=== PATIENT | female | born 1970 | race Caucasian/White ===

== ENCOUNTER 2021-02-22 17:01 | Emergency (ER) | payer SELFPAY ==
[2021-02-22 17:10] VITALS: BP 133/92; PULSE 72; RESP 16; TEMP 37.1; O2SAT 96
[2021-02-22 17:22] LABS: Glucose Point of Care 292 mg/dl (65-105)
--- NOTE | 2021-02-22 17:36 | ED.GENADULT ---
HPI - General Adult General Chief complaint: Unspecified Stated complaint: blood sugars problems Time Seen by Provider: 02/22/21 17:20 Source: patient Mode of arrival: ambulatory Limitations: no limitations History of Present Illness HPI narrative: Patient comes in and is a known diabetic, who has not taken any medications for diabetes, although she was diagnosed with diabetes in the past. She has had some mild to moderate sensation of not feeling well lately, with polyurira, polydipsia, polyphagia, and blurred vision at times. All these symptoms have been ongoing for about 3 weeks, hence she comes in. Measures at home include trying to loose weight, to help control the diabetes. She has lost 60 pounds over the past year. Onset (ago): week(s) Severity: moderate Relieving factors: rest Exacerbating factors: eating Associated symptoms: denies other symptoms Related Data Home Medications Medication Instructions Recorded Confirmed atenolol 50 mg PO DAILY 02/22/21 02/22/21 escitalopram oxalate [Lexapro] 50 mg PO DAILY 02/22/21 02/22/21 levothyroxine 325 mcg PO DAILY 02/22/21 02/22/21 oxybutynin chloride 5 mg PO DAILY 02/22/21 02/22/21 Allergies Allergy/AdvReac Type Severity Reaction Status Date / Time morphine Allergy Unknown Nausea and Verified 02/22/21 17:35 Vomiting prochlorperazine Allergy Unknown Confusion Verified 02/22/21 17:35 SIVER NITRATE Allergy Mild Unknown Uncoded 02/22/21 17:35 Review of Systems Constitutional: Constitutional: Reports fatigue Eyes: Eyes: Reports as per HPI ENT: Reports system reviewed and no additional complaints, except as documented Cardiovascular: Cardiovascular: Reports no additional cardiovascular complaints Respiratory: Respiratory: Reports no additional respiratory complaints Gastrointestinal: Gastrointestinal: Reports no additional gastrointestinal complaints Genitourinary: Genitourinary: Reports no additional female genitourinary complaints Musculoskeletal: Musculoskeletal: Reports no additional musculoskeletal complaints Integumentary/Breasts: Skin/Breast: Reports system reviewed and no additional complaints, except as docu Neurologic: Reports system reviewed and no additional complaints, except as documented Psychiatric: Psychiatric: Reports no additional psychiatric complaints Endocrine: Endocrine: Reports fatigue, Reports polyphagia, Reports polydipsia and Reports polyuria Hematologic/Lymphatic: Hematologic/Lymphatic: Reports no additional hematologic/lymphatic complaints Allergic/Immunologic: Allergic/Immunologic: Reports no additional allergic/immunologic complaints PMFSH Past Medical History Medical History (Updated 02/22/21 @ 17:56 by Yung Cole MD) delivery delivered Depression Hypothyroid Overactive bladder Surgical History Surgical History (Updated 02/22/21 @ 17:49 by Yung Cole MD) History of cholecystectomy History of tonsillectomy Family History Family History (Updated 02/22/21 @ 17:50 by Yung Cole MD) Father Heart disease Mother Diabetes mellitus Hypertension Hyperthyroidism Social History Social History (Updated 02/22/21 @ 17:52 by Yung Cole MD) Smoking packs per day: 2 Smoking cigarettes per day: 40.0 Smoking status: Current every day smoker Alcohol intake: never Substance use: former 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
[2021-02-22 18:02] LABS: Basophils Absolute Auto 0.06 K/mm3 (0.00-0.10); Basophils Percent Auto 0.6 % (0.0-1.0); Eosinophils Absolute Auto 0.11 K/mm3 (0.02-0.50); Eosinophils Percent Auto 1.1 % (1.0-6.0); Hematocrit 44.9 % (35.0-49.0); Hemoglobin 15.2 g/dL (12.0-15.0); Immature Granulocyte Absolute 0.05 K/mm3 (0.00-0.00); Immature Granulocyte Percent A 0.5 % (0.0-0.0); Lymphocytes Absolute Auto 3.92 K/mm3 (1.10-4.50); Lymphocytes Percent Auto 38.9 % (18.0-42.0); Mean Corpuscular HGB Conc 33.9 g/dL (32.0-36.0); Mean Corpuscular Hemoglobin 30.3 pg (27.0-31.0); Mean Corpuscular Volume 89.4 fL (78.0-102.0); Mean Platelet Volume 11.9 fl (9.2-11.8); Neutrophils Absolute Auto 5.5 K/mm3 (1.7-7.2); Neutrophils Percent Auto 53.9 % (50.0-70.0); Platelet Count Result 239 K/mm3 (150-420); Red Blood Count 5.02 M/mm3 (4.20-5.40); Red Cell Distribution Width 12.9 % (11.6-14.4); White Blood Count 10.1 K/mm3 (4.8-10.8)
[2021-02-22 18:15] LABS: Alanine Aminotransferase 38 U/L (14-59); Albumin Level 3.8 g/dL (3.4-5.0); Alkaline Phosphatase 147 U/L (46-116); Anion Gap 15 mmol/L (8-16); Aspartate Amino Transferase 14 U/L (15-37); Bilirubin,Total 0.6 mg/dL (0.00-1.00); Blood Urea Nitrogen 13 mg/dL (7-18); Calcium 9.1 mg/dL (8.5-10.1); Carbon Dioxide 22 mmol/L (21-32); Chloride 99 mmol/L (98-108); Estimated CRCL calculation 97 ml/min; Estimated Glomerular Filt Rate > 60; Glucose 374 mg/dL (70-99); Osmolality Calculated 297 mOsm/kg (285-295); Sodium 136 mmol/L (136-145); Total Protein 7.1 g/dL (6.4-8.2)
[2021-02-22 18:20] LABS: Lactic Acid Reflex 0.5 mmol/L (0.4-2.0)
[2021-02-22 18:28] LABS: Hemoglobin A1C > 13.7 % (<5.7)
[2021-02-22 18:33] LABS: Appearance Urine Clear (Clear); Bilirubin Urine Negative (Negative); Color Urine Light Yellow (Yellow); Glucose Urine UA 3+ (Negative); Ketones Urine 2+ (Negative); Leukocyte Esterase Ur Negative LEU/UL (Negative); Nitrate Urine Negative (Negative); Protein Urine Negative (Negative); Specific Grav Ur 1.015 (1.010-1.020); Urobilinogen Urine 0.2 mg/dL (0.2-1.0)
[2021-02-22 18:37] LABS: Acetone Small (Negative)
[2021-02-22 18:37] LABS: Add Urine Microscopic? YES; Blood Urine Trace-lysed (Negative)
[2021-02-22 18:38] LABS: Bacteria Urine 1+ /hpf; RBC Urine 0-2 /hpf (0-2); Squamous Epithelial Cell Urine Few /hpf (Few); WBC Urine 0-3 /hpf (0-3)
[2021-02-22] MEDS: INSULIN HUMAN REGULAR (*BKC) 100 UNITS/ML 10 UNITS SUB-Q (19:50)
[2021-02-22 20:32] LABS: Glucose Point of Care 298 mg/dl (65-105)
[2021-02-22 20:37] VITALS: BP 140/84; PULSE 65; RESP 14; O2SAT 95
== END 2021-02-22 20:39 | disposition home or self-care (01) ==
PROVIDERS: Emergency Provider Emergency Medicine
DX: E11.9 Type 2 diabetes mellitus without complications (principal)
CPT/HCPCS: 36415; 80053; 81001; 82010; 82948; 83036; 83605; 85025; 99283; J1815

== ENCOUNTER 2023-03-07 07:34 | Outpatient (CLI) | payer OTHER, SELFPAY ==
[2023-03-07 08:25] LABS: Alanine Aminotransferase 24 U/L (6-35); Albumin Level 4.5 g/dL (3.5-5.1); Alkaline Phosphatase 98 U/L (38-126); Anion Gap 12 mmol/L (8-16); Aspartate Amino Transferase 19 U/L (14-36); Bilirubin,Total 0.7 mg/dL (0.2-1.3); Blood Urea Nitrogen 16 mg/dL (7-17); Calcium 8.9 mg/dL (8.4-10.2); Carbon Dioxide 18 mmol/L (22-30); Chloride 106 mmol/L (98-107); Cholesterol 169 mg/dL (0-200); Estimated Glomerular Filt Rate > 60; Glucose 136 mg/dL (65-110); HDL Direct 34 mg/dL; Potassium 4.1 mmol/L (3.4-5.0); Sodium 136 mmol/L (137-145); Triglycerides 326 mg/dL (<150)
[2023-03-07 08:44] LABS: LDL Cholesterol Direct 71 mg/dL
[2023-03-07 10:39] LABS: Hemoglobin A1C 7.2 % (<5.7)
== END 2023-03-07 07:35 | disposition home or self-care (01) ==
PROVIDERS: PCP Nurse Practitioner Family; Visit Provider Nurse Practitioner Family
DX: E78.5 Hyperlipidemia, unspecified (principal); E11.9 Type 2 diabetes mellitus without complications
CPT/HCPCS: 36415; 80053; 80061; 83036

== ENCOUNTER 2023-05-14 11:49 | Outpatient (CLI) | payer OTHER, SELFPAY ==
[2023-05-14 13:13] LABS: Free T4 Free Thyroxine 2.07 ng/mL (0.78-2.19)
[2023-05-14 13:27] LABS: Thyroid Stimulating Hormone < 0.015 uIU/mL (0.465-4.680)
[2023-05-14 14:02] LABS: MALB Creatinine Ratio 11.1 mg/g (0-30); Microalbumin Urine Random 11.7 mg/L (0-16.7)
== END 2023-05-14 11:50 | disposition home or self-care (01) ==
PROVIDERS: PCP Nurse Practitioner Family; Visit Provider Internal Medicine
DX: E11.9 Type 2 diabetes mellitus without complications (principal); Z79.4 Long term (current) use of insulin
CPT/HCPCS: 36415; 82043; 84439; 84443

== ENCOUNTER 2023-10-16 10:58 | Outpatient (CLI) | payer OTHER, SELFPAY ==
[2023-10-16 11:25] LABS: Basophils Absolute Auto 0.1 K/mm3 (0.0-0.1); Basophils Percent Auto 0.8 % (0.2-1.2); Eosinophils Absolute Auto 0.1 K/mm3 (0-0.3); Hematocrit 47.3 % (37.0-47.0); Hemoglobin 15.6 g/dL (12.0-15.0); Immature Granulocyte Absolute 0.03 K/mm3 (0.00-0.031); Immature Granulocyte Percent A 0.3 % (0-0.5); Lymphocytes Absolute Auto 4.16 K/mm3 (0.9-3.2); Lymphocytes Percent Auto 44.7 % (18.3-44.2); Mean Corpuscular Hemoglobin 28.1 pg (26-34); Mean Corpuscular Volume 85.1 fl (80-100); Mean Platelet Volume 10.7 fl (7.4-10.4); Monocytes Absolute Auto 0.4 K/mm3 (0.1-0.6); Monocytes Percent Auto 4.7 % (2.6-8.5); Neutrophils Absolute Auto 4.5 K/mm3 (1.3-6.7); Neutrophils Percent Auto 48.5 % (45.5-73.1); Platelet Count Result 221 k/mm3 (150-375); Red Blood Count 5.56 M/mm3 (4.2-5.4); Red Cell Distribution Width 12.4 % (11.5-14.5); White Blood Count 9.3 K/mm3 (4.5-10.0)
[2023-10-16 11:44] LABS: Alanine Aminotransferase 26 U/L (6-35); Albumin Level 4.2 g/dL (3.5-5.1); Alkaline Phosphatase 89 U/L (38-126); Anion Gap 9 mmol/L (8-16); Aspartate Amino Transferase 18 U/L (14-36); Bilirubin,Total 0.5 mg/dL (0.2-1.3); Blood Urea Nitrogen 12 mg/dL (7-17); Calcium 9.3 mg/dL (8.4-10.2); Carbon Dioxide 19 mmol/L (22-30); Chloride 110 mmol/L (98-107); Cholesterol 138 mg/dL (0-200); Estimated Glomerular Filt Rate > 60; Glucose 146 mg/dL (65-110); HDL Direct 30 mg/dL; Potassium 3.8 mmol/L (3.4-5.0); Sodium 138 mmol/L (137-145); Triglycerides 315 mg/dL (<150)
[2023-10-16 11:55] LABS: LDL Cholesterol Direct 70 mg/dL
[2023-10-16 12:01] LABS: Free T4 Free Thyroxine 2.39 ng/mL (0.78-2.19)
[2023-10-16 12:08] LABS: MALB Creatinine Ratio < 9.7 mg/g (0-30); Microalbumin Urine Random < 6.0 mg/L (0-16.7)
[2023-10-16 12:13] LABS: Thyroid Stimulating Hormone < 0.015 uIU/mL (0.465-4.680)
[2023-10-19 04:27] LABS: Thyroid Peroxidase Antibodies 112 IU/mL (<9)
== END 2023-10-16 10:59 | disposition home or self-care (01) ==
LOC: ANHLAB 11:00
PROVIDERS: PCP Nurse Practitioner Family; Visit Provider Internal Medicine
DX: E78.5 Hyperlipidemia, unspecified (principal); E11.9 Type 2 diabetes mellitus without complications; E03.9 Hypothyroidism, unspecified; Z79.4 Long term (current) use of insulin; Z13.0 Encounter for screening for diseases of the blood and blood-forming organs and certain disorders involving the immune mechanism
CPT/HCPCS: 36415; 80053; 80061; 82043; 84439; 84443; 85025; 86376

== ENCOUNTER 2024-04-28 08:07 | Outpatient (CLI) | payer BC, SELFPAY ==
[2024-04-28 09:18] LABS: Thyroid Stimulating Hormone < 0.015 uIU/mL (0.465-4.680)
[2024-04-28 09:42] LABS: Free T4 Free Thyroxine 1.25 ng/mL (0.78-2.19)
== END 2024-04-28 08:08 | disposition home or self-care (01) ==
LOC: ANHLAB 08:10
PROVIDERS: PCP Nurse Practitioner Family; Visit Provider Internal Medicine
DX: E11.9 Type 2 diabetes mellitus without complications (principal); E03.9 Hypothyroidism, unspecified; Z79.4 Long term (current) use of insulin
CPT/HCPCS: 36415; 84439; 84443

== ENCOUNTER 2024-07-16 08:42 | Outpatient (CLI) | payer BC, SELFPAY ==
[2024-07-16 09:35] LABS: Basophils Absolute Auto 0.1 K/mm3 (0.0-0.1); Basophils Percent Auto 0.6 % (0.2-1.2); Eosinophils Absolute Auto 0.1 K/mm3 (0-0.3); Eosinophils Percent Auto 0.6 % (0-4.4); Hematocrit 48.6 % (37.0-47.0); Hemoglobin 16.2 g/dL (12.0-15.0); Immature Granulocyte Absolute 0.02 K/mm3 (0.00-0.031); Immature Granulocyte Percent A 0.2 % (0-0.5); Lymphocytes Absolute Auto 3.47 K/mm3 (0.9-3.2); Lymphocytes Percent Auto 40.4 % (18.3-44.2); Mean Corpuscular HGB Conc 33.3 g/dl (32-36); Mean Corpuscular Hemoglobin 29.1 pg (26-34); Mean Corpuscular Volume 87.4 fl (80-100); Mean Platelet Volume 11.1 fl (7.4-10.4); Monocytes Absolute Auto 0.5 K/mm3 (0.1-0.6); Monocytes Percent Auto 6.1 % (2.6-8.5); Neutrophils Absolute Auto 4.5 K/mm3 (1.3-6.7); Neutrophils Percent Auto 52.1 % (45.5-73.1); Platelet Count Result 271 k/mm3 (150-375); Red Blood Count 5.56 M/mm3 (4.2-5.4); Red Cell Distribution Width 11.9 % (11.5-14.5); White Blood Count 8.6 K/mm3 (4.5-10.0)
[2024-07-16 09:36] LABS: Alanine Aminotransferase 32 U/L (6-35); Albumin Level 5.1 g/dL (3.5-5.1); Alkaline Phosphatase 85 U/L (38-126); Anion Gap 8 mmol/L (4-12); Aspartate Amino Transferase 22 U/L (14-36); Bilirubin,Total 0.7 mg/dL (0.2-1.3); Blood Urea Nitrogen 12 mg/dL (7-17); Calcium 9.7 mg/dL (8.4-10.2); Carbon Dioxide 27 mmol/L (22-30); Chloride 104 mmol/L (98-107); Cholesterol 146 mg/dL (0-200); Estimated Glomerular Filt Rate > 60; Glucose 109 mg/dL (65-110); HDL Direct 42 mg/dL; Sodium 139 mmol/L (137-145); Triglycerides 240 mg/dL (<150)
[2024-07-16 09:47] LABS: LDL Cholesterol Direct 59 mg/dL
[2024-07-16 09:53] LABS: Add Urine Microscopic? NO; Appearance Urine Clear (Clear); Bilirubin Urine Negative (Negative); Blood Urine Negative (Negative); Color Urine Yellow (Yellow); Glucose Urine UA 3+ mg/dL (Negative); Ketones Urine Negative (Negative); Leukocyte Esterase Ur Negative LEU/UL (Negative); Nitrate Urine Negative (Negative); Protein Urine Negative (Negative); Specific Grav Ur 1.028 (1.001-1.035); Urobilinogen Urine 0.2 mg/dL (<2.0)
[2024-07-16 09:57] LABS: Free T4 Free Thyroxine 1.94 ng/dL (0.78-2.19)
[2024-07-16 10:07] LABS: Thyroid Stimulating Hormone < 0.015 uIU/mL (0.465-4.680); Total Triiodothyronine (T3) 1.48 NG/ML (0.97-1.69)
[2024-07-18 16:08] LABS: Erythropoietin (EPO) 6.2 mIU/mL (2.6-18.5)
== END 2024-07-16 08:43 | disposition home or self-care (01) ==
PROVIDERS: PCP Nurse Practitioner Family; Referring Provider Nurse Practitioner Family; Visit Provider Internal Medicine
DX: D58.2 Other hemoglobinopathies (principal); E03.9 Hypothyroidism, unspecified; E11.9 Type 2 diabetes mellitus without complications; E66.9 Obesity, unspecified; E78.5 Hyperlipidemia, unspecified; F17.210 Nicotine dependence, cigarettes, uncomplicated; F32.9 Major depressive disorder, single episode, unspecified; I10 Essential (primary) hypertension; J44.9 Chronic obstructive pulmonary disease, unspecified; N32.81 Overactive bladder; Z79.4 Long term (current) use of insulin
CPT/HCPCS: 36415; 80053; 80061; 81003; 82668; 83519; 84439; 84443; 84445; 84480; 85025

== ENCOUNTER 2024-07-16 09:29 | Outpatient (CLI) | payer BC, SELFPAY ==
--- NOTE | ~2024-07-16 | US_ITS ---
EXAMINATION: US thyroid DATE: 07/16/2024 09:47 INDICATION: Thyroid nodule. TECHNIQUE: Multiple ultrasound images of the thyroid were obtained. COMPARISON: None. FINDINGS: The right thyroid lobe measures 3.4 x 1.0 x 1.2 cm. The left thyroid lobe measures 2.8 x 1.0 x 0.9 c m. The thyroid demonstrates heterogeneous echogenicity. No discrete nodule. Vascularity is normal. IMPRESSION: 1. Heterogeneous thyroid, likely chronic lymphocytic (Romi) thyroiditis. Reviewed, dictated and finalized at location A. SIFIER TENDER
== END 2024-07-16 09:30 | disposition home or self-care (01) ==
LOC: MICIMG 09:32
PROVIDERS: PCP Nurse Practitioner Family; Visit Provider Internal Medicine
DX: E03.9 Hypothyroidism, unspecified (principal); R79.89 Other specified abnormal findings of blood chemistry
CPT/HCPCS: 76536

== ENCOUNTER 2024-11-18 08:14 | Outpatient (CLI) | payer BC, SELFPAY ==
--- OUTSIDE RECORDS SUMMARY | 2024-11-18 08:21 | XMS_ITS | Referral Summary ---
Author Organization [facility] Address [address] [place] [address] Care Team Providers Care Business Performance Manager Name Role Phone No, Physician Primary Care Provider [phone] Allergies Active Allergy Reactions Criticality Noted Date Comments Morphine Prochlorperazine Medications levothyroxine (SYNTHROID, LEVOTHROID) 100 mcg tablet Take 1 tablet (100 mcg total) by mouth daily. 60 tablet 8 Active albuterol (PROVENTIL,VENT EUNICE) 0.63 mg/3 mL nebulizer solution Take 3 mL (0.63 mg total) by nebulization every 6 (six) hours as needed for wheezing. 75 mL 8 Active atorvastatin (LIPITOR) 10 mg tablet Take 1 tablet (10 mg total) by mouth daily Active dapagliflozin propanediol (FARXIGA) 10 mg tablet 1 tablet (10 mg total) daily Active semaglutide (OZEMPIC SUBQ) Inject 2 mg under the skin once a week Active chlorhexidine (PERIDEX) 0.12 % solutionIndicat ions:Dog bite, subsequent encounter Swish and spit 15ml 4 times per day 120 mL 4 Active Active Problems Problem Noted Date Diagnosed Date Avulsion of nose 03/24/2024 Lip laceration 03/24/2024 Dog bite 03/24/2024 Contusion of knee 05/29/2014 Knee pain 05/29/2014 Osteoarthritis of knee 05/26/2014 Breast pain 02/08/2013 Social History Tobacco Use Types Packs/Day Years Used Date Smoking Tobacco: Former Cigarettes Smokeless Tobacco: Never Tobacco Cessation:Counseling Given: Not Answered Comments:1-2 packs daily. Alcohol Use Standard Drinks/Week Comments Yes 0 (1 standard drink = 0.6 oz pur e alcohol) Occasional drinker. AUDIT-C Answer Date Recorded Q1: How often do you have a drink containing alc ohol? Never 03/28/2024 Average Number of Drinks Not on file 024 Frequency of Binge Drinking Not on file 03/10 Personal Safety Answer Date Recorded Have you ever been in or are you currently in a harmful physical or emotional relationship or is someone making you feel afraid or unsafe? 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 Gender Identity Not on file Sexual Orientation Not on file Last Filed Vital Signs Vital Sign Reading Time Taken Comments Blood Pressure 145/98 03/24/2024 2:31 PM CDT Pulse 88 03/24/2024 2:31 PM CDT Temperature 37.4 C (99.4 F) 03/24/2024 8:43 AM CDT Respiratory Rate 18 03/24/2024 2:31 PM CDT Oxygen Saturation 94% 03/24/2024 2:31 PM CDT Inhaled Oxygen Concentration - - Weight 95.7 kg (211 lb) 03/28/2024 2:47 PM CDT Height 160 cm (5' 3 ) 03/28/2024 2:47 PM CDT Body Mass Index 37.38 03/28/2024 2:47 PM CDT Plan of Treatment Not on file Procedures Procedure Name Priority Date/Time Associated Diagnosis Comments HEPATITIS PANEL, ACUTE STAT 01/13/2018 8:55 AM CDT from Last 3 Months or Most Recently Relevant to Health Maintenance Results * Hepatitis panel, acute (01/13/2018 8:55 AM CDT) Hep A IgM Negative Negative [facility] ([place]) Comment:Testing performed by : [facility], [address] [place] [address], [place]., [address] Hep B core IgM Negative Negative [facility] ([place]) Comment:Testing performed by : [address] [address] Hep C Ab Negative Negative [facility] ([place]) Comment:Testing performed by : [facility], [address] [place] [address]., [address] HepBsAg Negative Negative [facility] ([place]) Comment:Testing performed by : [address], [place]., [address] Blood specimen (specimen) 01/13/2018 8:55 AM CDT 01/13/2018 2:04 PM CDT Narrative [facility] ([place]) - 01/13/2018 3:21 PM CDT us Conrado Mccall MD LAB MICROBIOLOGY - GENE RAL ORDERABLES Final Result [facility] ([place]) 1 [facility] Department [place] [address] from Last 3 Months or Most Recently Relevant to Health Maintenance [place] Care Teams Business Performance Manager Relationship Specialty Start Date End Date No, Physician PCP - General 01/13/18
--- OUTSIDE RECORDS SUMMARY | 2024-11-18 08:21 | XMS_ITS | Clinical Summary ---
Author Organization [facility] [place] [facility] Address [address] [place] [id number] Care Team Providers Care Health Informatics Specialist Name Role Phone Carlota Connolly JHOANA Primary Care Provider [phone] Social History Tobacco Use Types Packs/Day Years Used Date Smoking Tobacco: Never Assessed Comments Unknown Sex and Gender Information Value Date Recorded Sex Assigned at Not on file Legal Sex Female 5:08 PM CDT Gender Identity Not on file Sexual Orientation Not on file Plan of Treatment Health Maintenance Due Date Last Done Comments Cervical Cancer Screening Pa p Smear (Age 30 to 64) Every 3 Years 1971 Colorectal Cancer Screening Colonoscopy (10 Years) 1971 Annual Physical 1974 Hepatitis C 1989 DTaP, Tdap and Td Vaccines ( 1 - Tdap) 1990 Hepatitis B Vaccines (1 of 3 - 19+ 3-dose series) 1990 Cervical Cancer Screening Pa p with HPV Testing (Age 30 to 64) Every 5 Years 2001 Cervical Cancer Screening with HPV 2001 Mammogram Screening 2011 Zoster Vaccines (1 of 2) 2021 COVID-19 Vaccine ( - 2023-2 5 season) 2024 Meningococcal B Vaccine Aged Out No l onger eligible based on patient's age to complete this topic Meningococcal Vaccine Aged Out No destiny patience eligible based on patient's age to complete this topic Pneumococcal Vaccine: Pediat rics (0 to 5 Years) and At-Risk Patients (6 to 64 Years) Aged Out No longer eligible b ased on patient's age to complete this topic RSV Immunizations Under 20 Months Aged Out No longer eligible based on patient's age to complete this topic Insurance [employer] Care Teams Health Informatics Specialist Relationship Specialty Start Date End Date Carlota Connolly APNP [address] [place] [id number] PCP - General NURSE PRACTITIONER 10/25/21
--- OUTSIDE RECORDS SUMMARY | 2024-11-18 08:21 | XMS_ITS | Encounter Summary ---
Author Organization [facility] Address [address] [place] [address] Care Team Providers Care Wrist Closer Name Role Phone Carlota Connolly Primary Care Provider [phone] Encounter Details Date Type Department Care Team (Late st Contact Info) Description 01/15/[address] [facility] [address] [place] [address] , Generic Conversion, Social History Tobacco Use Types Packs/Day Years Used Date Smoking Tobacco: Never Assessed Comments Unknown Sex and Gender Information Value Date Recorded Sex Assigned at Not on file Legal Sex Female 5:08 PM CDT Gender Identity Not on file Sexual Orientation Not on file documented as of this encounter Plan of Treatment Not on file documented as of this encounter Visit Diagnoses Not on filedocumented in this encounter Care Teams Wrist Closer Relationship Specialty Start Date End Date Carlota Connolly APNP [facility] [place] [address] PCP - General NURSE PRACTITIONER 10/25/21 documented as of this encounter
--- OUTSIDE RECORDS SUMMARY | 2024-11-18 08:21 | XMS_ITS | Clinical Summary ---
Author Organization [facility] Address [address] [place] [address] Care Team Providers Care Sock Boarder Name Role Phone No, Physician Primary Care Provider [phone] Allergies Active Allergy Reactions Criticality Noted Date [...] Osteoarthritis of knee 05/26/2014 Breast pain 02/08/2013 Surgical History Surgery Date Site/Laterality Comments CHOLECYSTECTOMY KNEE SURGERY SECTION BREAST LUMPECTOMY Medical History Medical History Date Comments Thyroid disease Breast cancer (HCC) 20+ years ag o. Hypertension Family History Medical History Relation Name Comments Hypertension Brother 1 Family history of hypertension - (Added by TW Conv) Mental illness Brother 2 Mental proble m - (Added by TW Conv) Alcohol abuse Father Family history of alcoholism - (Added by TW Conv) Heart disease Father Family history of cardiac disorder - (Added by TW Conv) Hypertension Father Family history of hypertension - (Added by TW Conv) Mental illness Father Mental proble m - (Added by TW Conv) Arthritis Mother Family history of arthritis - (Added by TW Conv) Blood Clot Mother Family history of blood clots - (Added by TW Conv) Diabetes Mother Hypertension Mother Lung disease Mother Lung trouble - (Added by TW Conv) Mental illness Mother Mental proble m - (Added by TW Conv) Thyroid disease Mother Hypertension Sister 1 Family history of hypertension - (Added by TW Conv) Mental illness Sister 2 Mental proble m - (Added by TW Conv) Cancer Sister 3 Family history of malignant neoplasm - (Added by TW Conv) Relation Name Status Comments Brother 1 Brother 2 Father Mother Sister 1 Sister 2 Sister 3 Social History Tobacco Use Types Packs/Day Years [...] on file 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 Gender Identity Not on file Sexual Orientation Not on file Obstetrics History Last Filed Vital Signs Vital Sign Reading [...] 03/28/2024 2:47 PM CDT Plan of Treatment Health Maintenance Due Date Last Done Comments Breast Cancer Screening-Mammogram 1971 Cervical Cancer Screening 1971 Colon Cancer Screening-Colonoscopy 1971 Depression Screening 1971 DTaP/Tdap/Td Vaccine (1 - Tdap) 1982 Hepatitis B Screening 1989 Regular Well Visit/Exam 18-64 1989 Zoster Vaccine (1 of 2) 2021 Influenza Vaccine (#1) 2024 9, 07/11/2014 Hepatitis C Screening Completed 01/13/2018 Pneumococcal vaccine <65 Aged Out No longer eligible based on patient's age to complete this topic Procedures Procedure Name Priority Date/Time Associated Diagnosis Comments HEPATITIS PANEL, ACUTE STAT 01/13/2018 8:55 AM CDT from Last 3 Months or Most Recently Relevant to Health Maintenance Results * Hepatitis panel, acute (01/13/2018 8:55 AM CDT) Hep A IgM Negative Negative [facility] ([place]) Comment:Testing performed by : [address] [address] Hep B core IgM Negative Negative [facility] ([place]) Comment:Testing performed by : [address] [address] Hep C Ab Negative Negative [facility] ([place]) Comment:Testing performed by : [address] [address] HepBsAg Negative Negative [facility] ([place]) Comment:Testing performed by : [address] [address] Blood specimen (specimen) 01/13/2018 8:55 AM CDT 01/13/2018 2:04 PM CDT Narrative [facility] ([place]) - 01/13/2018 3:21 PM CDT Conrado Mccall MD LAB MICROBIOLOGY - GENE RAL ORDERABLES Final Result [facility] [place]) 1 [facility] [place] [address] from Last 3 Months or Most Recently Relevant to Health Maintenance [place] Care Teams Sock Boarder Relationship Specialty Start Date End Date No, Physician PCP - General 01/13/18
--- OUTSIDE RECORDS SUMMARY | 2024-11-18 08:21 | XMS_ITS | Clinical Summary ---
Author Organization [facility] Address [address] [facility] [address] [place] [address] Phone Care Team Providers Care Structural Worker Name Role Phone Unavailable Primary Care Provider Unavailabl e Allergies Active Allergy Reactions Criticality Noted Date Comments Prochlorperazine Anaphylaxis 01/04/2019 Morphine Hallucinations 01/04/2019 Medications escitalopram (LEXAPRO) 10 MG Tablet Take 1 Tab by mouth daily. 90 Tab 9 Active levothyroxine (SYNTHROID) 150 MCG Tablet Take 1 Tab by mouth daily. 90 Tab 3 9 Active metFORMIN (GLUCOPHAGE) 500 MG Tablet Take 1 Tab by mouth daily (with breakfast). 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 Social History Tobacco Use Types Packs/Day Years Used Date Smoking Tobacco: Every Day Smokeless Tobacco: Never Tobacco Cessation:Ready to Q uit: No; Counseling Given: Yes Alcohol Use Standard Drinks/Week Comments Not Currently 0 (1 standard drink = 0.6 oz pur e alcohol) PHQ-2 Answer Date Recorded PHQ-2 Score 0 04/21/2019 Sexually Active Control Partners Comments Not Currently Comments No Sex and Gender Information Value Date Recorded Sex Assigned at Not on file Legal Sex Female 9:34 PM CDT Gender Identity Not on file Sexual Orientation Not on file Last Filed Vital Signs Vital Sign Reading Time Taken Comments Blood Pressure 120/82 01/12/2019 12:54 PM CDT Pulse 78 01/12/2019 12:54 PM CDT Temperature 36 C (96.8 F) 01/12/2019 12:54 PM CDT Respiratory Rate 20 01/12/2019 12:5 4 PM CDT Oxygen Saturation 99% 01/12/2019 12: 54 PM CDT Inhaled Oxygen Concentration - - Weight 124.3 kg (274 lb 1.6 oz) 019 12:54 PM CDT Height 161.3 cm (5' 3.5 ) 01/12/2019 12 :54 PM CDT Body Mass Index 47.79 01/12/2019 12:54 PM CDT Plan of Treatment Health Maintenance Due Date Last Done Comments Diabetes: Eye Exam 1971 Diabetes: Foot Exam 1971 Hepatitis C Virus (HCV) Screening 1971 TdaP Immunization 1971 Hepatitis B Immunization (1 of 3 - 19+ 3-dose series) 1990 Pneumococcal Immunization (5 0+ years) (1 of 2 - PCV) 1990 Colonoscopy 2016 Colorectal Cancer Screening 2016 Diabetes: Hemoglobin A1c 07/07/2019 01/04/2019 Diabetes: Nephropathy Screening 01/05/2020 9 Cologuard 2021 Immunochemical Fecal Occult Blood 2021 Zoster Immunization (1 of 2) 2021 Influenza Immunization (#1) 2024 SARS-COV-2 Immunization ( - 2023- season) 2024 Respiratory Syncytial Virus (RSV) Immunization (Adult) (1 - 1-dose 75+ series) 2046 Meningococcal Immunization (ACWY) Aged Out No longer eligible based on patient's age to complete this topic Rotavirus Immunization Aged Out No lo nger eligible based on patient's age to complete this topic Procedures Procedure Name Priority Date/Time Associated Diagnosis Comments CMP (COMPREHENSIVE METABOLIC PANEL) Routine 01/04/2019 11:17 AM CDT Other fatigue Weakness Weight gain HEMOGLOBIN A1C W/ ESTIMATED GLUCOSE Routine 01/04/2019 11:17 AM CDT Other fatigue Weakness Weight gain from Last 3 Months or Most Recently Relevant to Health Maintenance Results * (ABNORMAL) HEMOGLOBIN A1C W/ ESTIMATED GLUCOSE (01/04/2019 11:17 AM CDT) HGB-A1C 6.6(H) 4.0 - 6.0 % 01/04/2019 4:[address] [facility] Est Average Glucose 142.7 mg/dL 01/04/2019 4:31 PM CDT [facility] Blood specimen (specimen) Venipuncture / Unknown 01/04/2019 11:17 AM CDT 01/04/2019 11:17 AM CDT Narrative [facility] - 01/04/2019 4:31 PM CDT HEMOGLOBIN A1C: DIABETIC PATIENTS: WELL-CONTROLLED: 6.2 - 7.0 INTERMEDIATE WELL-CONTROLLED: 7.0 - 9.0 POORLY-CONTROLLED: >9.0 Fátima Jean PAC CHEMISTRY ORDERAB LES Final Result [facility] [address] [place] [address] * (ABNORMAL) CMP (COMPREHENSIVE METABOLIC PANEL) (01/04/2019 11:17 AM CDT) SODIUM 139 136 - 144 mmol/L 01/04/2019 4:31 PM CDT [facility] POTASSIUM 4.2 3.5 - 5.1 mmol/L 01/04/2019 4:[address] [facility] CHLORIDE 99(L) 100 - 110 mmol/L 01/04/2019 4:31 PM CDT [facility] CO2, VENOUS 28 22 - 32 mmol/L 01/04/2019 4:31 PM [facility] ANION GAP 16.2 8.0 - 20.0 mmol/L 01/04/2019 4:31 PM T [facility] GLUCOSE 99 70 - 99 mg/dL 01/04/2019 4:31 PM [facility] BUN 13 6 - 20 mg/dL 01/04/2019 4:31 PM [facility] CREATININE, BLOOD 1.00 0.60 - 1.10 mg/dL 01/04/2019 4:31 PM [facility] BUN/CREATININE RATIO 13 12 - 20 ratio 01/04/2019 4:31 PM [facility] TOTAL PROTEIN 8.2 6.0 - 8.3 g/dL 01/04/2019 4:31 PM [facility] ALBUMIN 4.8 3.5 - 5.2 g/dL 01/04/2019 4:31 PM [facility] Comment: The colormetric methods used for the determination of Albumin may lead to falsely elevated test results in patients suffering from renal failure or insufficiency due to interference with other proteins. A/G RATIO 1.4 1.0 - 2.0 01/04/2019 4:31 PM [facility] CALCIUM 9.9 8.9 - 10.3 mg/dL 01/04/2019 4:31 PM [facility] T BILI 0.4 <=1.2 mg/dL 01/04/2019 4:31 PM [facility] SGOT (AST) 29 <=32 U/L 01/04/2019 4:31 PM [facility] SGPT (ALT) 20 <=33 U/L 01/04/2019 4:31 PM T [facility] ALKALINE PHOSPHATASE 71 35 - 105 U/L 01/04/2019 4:31 PM [facility] GFR, EST. NONAFRICAN 59(L) >=60 01/04/2019 4:31 PM CDT [facility] GFR, EST. >60 >=60 019 4:[address] [facility] Comment: Creatinine Clearance is the preferred criteria for selecting drug dose adjustments in renally impaired patients. The GFR is provided as additional pertinent clinical information. GFR is reported in mL/min/1.73 sq m. Blood specimen (specimen) Venipuncture / Unknown 01/04/2019 11:17 AM CDT 01/04/2019 11:17 AM CDT us Fátima Jean PAC CHEMISTRY ORDERAB LES Final Result [facility] [address] [place] [address] from Last 3 Months or Most Recently Relevant to Health Maintenance
--- OUTSIDE RECORDS SUMMARY | 2024-11-18 08:21 | XMS_ITS | Clinical Summary ---
Author Organization [facility] Address [address] [place] [address] Care Team Providers Care Teletray Operator Name Role Phone Werner Bartholomew MD Primary Care Provider [phone] Source Comments [facility],non-owned Affiliates and Associated Physician Practices is amultiple site organization consisting of ambulatory clinics and hospital sitesin [place], [place], [place] and [place]. This disclosure is being madepursuant to the Care Everywhere program and may not contain all information available regarding this patient. Last updated 18.[facility] Social History Tobacco Use Types Packs/Day Years Used Date Smoking Tobacco: Never Assessed Sex and Gender Information Value Date Recorded Sex Assigned at Not on file Gender Identity Not on file Sexual Orientation Not on file Plan of Treatment Health Maintenance Due Date Last Done Comments COLOGUARD (AGES 45-75) - COL ON CA SCREENING 1971 COLON MONITORING 1971 COLONOSCOPY - COLON CA SCREENING 1971 CT COLONOGRAPHY - COLON CA SCREENING 1971 Colorectal Cancer Screening 1971 FIT - COLON CA SCREENING 1971 FLEX SIG - COLON CA SCREENING 1971 LIPID TESTING 1971 MAMMOGRAM 1971 PAP SMEAR 1971 HIV SCREENING 1986 HEPATITIS C SCREENING 09/14/1989 DTAP/TDAP/TD VACCINES (1 - Tdap) 1990 HEPATITIS B VACCINE (1 of 3 - 19+ 3-dose series) 1990 PNEUMOCOCCAL VACCINE 50+ (1 of 1 - PCV) 2021 ZOSTER VACCINE (1 of 2) 2021 COVID-19 VACCINE ( - 2023-2 5 season) 2024 DEPRESSION SCREENING 08/10/2024 INFLUENZA VACCINE (Season Ended) 2025 HIB VACCINE Aged Out No longer eligi ble based on patient's age to complete this topic HPV VACCINE Aged Out No longer eligi ble based on patient's age to complete this topic MENINGOCOCCAL (Group B) VACC INE SHARED DECISION-MAKING Aged Out No longer eligibl e based on patient's age to complete this topic MENINGOCOCCAL GROUPS A/C/Y/W VACCINE Aged Out No longer eligible b ased on patient's age to complete this topic PNEUMOCOCCAL VACCINE Aged Out No long er eligible based on patient's age to complete this topic Care Teams Teletray Operator Relationship Specialty Start Date End Date Werner Bartholomew MD [address] [place] [address] PCP - General 01/07/12
[2024-11-18 08:45] LABS: Basophils Absolute Auto 0.1 K/mm3 (0.0-0.1); Basophils Percent Auto 0.7 % (0.2-1.2); Eosinophils Absolute Auto 0.1 K/mm3 (0-0.3); Eosinophils Percent Auto 0.7 % (0-4.4); Hematocrit 45.7 % (37.0-47.0); Hemoglobin 15.1 g/dL (12.0-15.0); Immature Granulocyte Absolute 0.02 K/mm3 (0.00-0.031); Immature Granulocyte Percent A 0.2 % (0-0.5); Lymphocytes Absolute Auto 3.69 K/mm3 (0.9-3.2); Lymphocytes Percent Auto 43.5 % (18.3-44.2); Mean Corpuscular Hemoglobin 28.9 pg (26-34); Mean Corpuscular Volume 87.5 fl (80-100); Mean Platelet Volume 10.3 fl (7.4-10.4); Monocytes Absolute Auto 0.6 K/mm3 (0.1-0.6); Monocytes Percent Auto 6.5 % (2.6-8.5); Neutrophils Absolute Auto 4.1 K/mm3 (1.3-6.7); Neutrophils Percent Auto 48.4 % (45.5-73.1); Platelet Count Result 269 k/mm3 (150-375); Red Blood Count 5.22 M/mm3 (4.2-5.4); White Blood Count 8.5 K/mm3 (4.5-10.0)
[2024-11-18 09:46] LABS: Alanine Aminotransferase 24 U/L (6-35); Albumin Level 4.5 g/dL (3.5-5.1); Alkaline Phosphatase 79 U/L (38-126); Anion Gap 15 mmol/L (4-12); Aspartate Amino Transferase 20 U/L (14-36); Bilirubin,Total 0.5 mg/dL (0.2-1.3); Blood Urea Nitrogen 14 mg/dL (7-17); Calcium 9.2 mg/dL (8.4-10.2); Carbon Dioxide 19 mmol/L (22-30); Chloride 105 mmol/L (98-107); Cholesterol 183 mg/dL (0-200); Estimated Glomerular Filt Rate > 60; Glucose 109 mg/dL (65-110); HDL Direct 38 mg/dL; Potassium 4.3 mmol/L (3.4-5.0); Sodium 139 mmol/L (137-145); Triglycerides 327 mg/dL (<150)
[2024-11-18 09:50] LABS: Microalbumin Urine Random 12.6 mg/L (0-16.7)
[2024-11-18 09:53] LABS: Creatinine Urine 79.2 mg/dL; MALB Creatinine Ratio 15.9 mg/g (0-30)
[2024-11-18 09:57] LABS: LDL Cholesterol Direct 84 mg/dL
== END 2024-11-18 08:15 | disposition home or self-care (01) ==
PROVIDERS: PCP Nurse Practitioner Family; Visit Provider Nurse Practitioner Family
DX: Z00.00 Encounter for general adult medical examination without abnormal findings (principal); F33.41 Major depressive disorder, recurrent, in partial remission; E66.9 Obesity, unspecified; Z68.34 Body mass index [BMI] 34.0-34.9, adult; E78.5 Hyperlipidemia, unspecified; J44.9 Chronic obstructive pulmonary disease, unspecified; I10 Essential (primary) hypertension; N32.81 Overactive bladder; E03.9 Hypothyroidism, unspecified; E11.9 Type 2 diabetes mellitus without complications; D58.2 Other hemoglobinopathies; Z72.0 Tobacco use; Z79.4 Long term (current) use of insulin
CPT/HCPCS: 36415; 80053; 80061; 82043; 85025

== ENCOUNTER 2024-12-16 15:39 | Outpatient (CLI) | payer BC, SELFPAY ==
--- NOTE | ~2024-12-16 | CT_ITS ---
CT Scan of the Chest without Contrast: Clinical Indication: Lung cancer screening, nicotine dependence Technique: Contiguous sections were acquired throughout the chest without intravenous contrast. Dose reduction technique was used on this scan by utilizing automated exposure control and iterative recon struction technique. The dose-length product (DLP) was 147.27 mGy-cm. Findings: There is no evidence of any significant mediastinal, hilar or axillary lymphadenopathy. Coronary mahendra ry calcifications are present. There is lipomatous hypertrophy of the interatrial septum. There is no evidence of pleural or pericardial effusion. Vague focal groundglass opacity anterior right upper lobe (axial image 31). 5 mm pleural-based nodule present at the lateral right lower lobe (axial image 79). Calcified left upper lobe granuloma presen t. Images through the upper abdomen reveal no abnormalities. Impression: Lung RADS 2: Benign appearance. 12 month follow-up screening CT advised. Reviewed, dictated and finalized at [facility]. Impression: Lung RADS 2: Benign appearance. 12 month follow-up screening CT advised.
== END 2024-12-16 15:40 | disposition home or self-care (01) ==
LOC: MICIMG 15:40
PROVIDERS: PCP Nurse Practitioner Family; Visit Provider Nurse Practitioner Family
DX: Z12.2 Encounter for screening for malignant neoplasm of respiratory organs (principal); Z87.891 Personal history of nicotine dependence
CPT/HCPCS: 71271

== ENCOUNTER 2025-03-10 06:45 | Outpatient (CLI) | payer BC, SELFPAY ==
--- OUTSIDE RECORDS SUMMARY | 2025-03-10 06:49 | XMS_ITS | Clinical Summary ---
Author Organization [facility] Address [address] [place] [address] Care Team Providers Care Materials Scheduler Name Role Phone No, Physician Primary Care Provider [phone] Allergies Active Allergy Reactions Criticality Noted Date [...] on file Legal Sex Female 1:45 AM DIRECTOR PHYSICAL Gender Identity Not on file Sexual Orientation [...] 2:47 PM CDT Height 160 cm (5' 3) 03/28/2024 2:47 PM CDT Body Mass Index 37.38 03/28/2024 2:47 PM CDT Plan of Treatment Health Maintenance Due Date Last Done Comments Breast Cancer Screening-Mammogram 1971 Cervical Cancer Screening 1971 Colon Cancer Screening-Colonoscopy 1971 Depression Screening 1971 DTaP/Tdap/Td Vaccine (1 - Tdap) 1982 Hepatitis B Screening 1989 Regular Well Visit/Exam 18-64 1989 Zoster Vaccine (1 of 2) 2021 Influenza Vaccine (#1) 2025 9, 07/11/2014 Hepatitis C Screening Completed 01/13/2018 [...] [facility] ([place]) Comment:Testing performed by : [address] [address] Hep B core IgM Negative Negative [facility] ([place]) Comment:Testing performed by : [address] [address] Hep C Ab Negative Negative [facility] ([place]) Comment:Testing performed by : [address] [address] HepBsAg Negative Negative [facility] ([place]) Comment:Testing performed by : [address] [address] Blood specimen (specimen) 01/13/2018 8:55 AM CDT 01/13/2018 2:04 PM CDT Narrative [facility] ([place]) - 01/13/2018 3:21 PM CDT Conrado Mccall MD LAB MICROBIOLOGY - GENE RAL ORDERABLES Final Result [facility] [place]) 1 [facility] Department [place] [address] from Last 3 Months or Most Recently Relevant to Health Maintenance [place] Care Teams Materials Scheduler Relationship Specialty Start Date End Date No, Physician PCP - General 01/13/18
--- OUTSIDE RECORDS SUMMARY | 2025-03-10 06:49 | XMS_ITS | Clinical Summary ---
Author Organization [facility] Address [address] [facility] [address] [place] [address] Phone Care Team Providers Care Paint Striping Machine Operator Name Role Phone Unavailable Primary Care Provider [...] 12:54 PM CDT Height 161.3 cm (5' 3.5) 01/12/2019 12 :54 PM CDT Body Mass Index 47.79 01/12/2019 12:54 PM CDT Plan of Treatment Health Maintenance Due Date Last Done Comments Diabetes: Eye Exam 1971 Diabetes: Foot Exam 1971 Hepatitis C Virus (HCV) Screening 1971 TdaP Immunization 1971 Hepatitis B Immunization (1 of 3 - 19+ 3-dose series) 1990 Pneumococcal Immunization (5 0+ years) (1 of 2 - PCV) 1990 Pap Smear 1992 Cervical Cancer Screening (CCS) 2001 HPV/Cotest 2001 Cologuard 2016 Colonoscopy 2016 Colorectal Cancer Screening 2016 Immunochemical Fecal Occult Blood 2016 Diabetes: Hemoglobin A1c 07/07/2019 01/04/2019 Diabetes: Nephropathy Screening 01/05/2020 9 Zoster Immunization (1 of 2) 2021 SARS-COV-2 Immunization ( - season) 2024 Influenza Immunization (#1) 2025 Respiratory Syncytial Virus (RSV) Immunization (Adult) (1 - 1-dose 75+ series) 2046 Human Papillomavirus (HPV) Immunization Aged Out No longer eligible b ased on patient's age to complete this topic Meningococcal Immunization (ACWY) Aged Out No longer [...] - 6.0 % 01/04/2019 4:31 PM CDT [facility] Est Average Glucose 142.7 mg/dL 01/04/2019 4:31 PM CDT [facility] Blood specimen (specimen) Venipuncture / Unknown 01/04/2019 11:17 AM CDT 01/04/2019 11:17 AM CDT Narrative [facility] - 01/04/2019 4:31 PM CDT HEMOGLOBIN A1C: DIABETIC PATIENTS: WELL-CONTROLLED: 6.2 - 7.0 INTERMEDIATE WELL-CONTROLLED: 7.0 - 9.0 POORLY-CONTROLLED: >9.0 Fátima Jean PAC CHEMISTRY ORDERAB LES Final Result [facility] [address] [place] [address] * (ABNORMAL) CMP (COMPREHENSIVE METABOLIC PANEL) (01/04/2019 11:17 AM CDT) SODIUM 139 136 - 144 mmol/L 01/04/2019 4:31 PM CDT [facility] POTASSIUM 4.2 3.5 - 5.1 mmol/L 01/04/2019 4:31 PM [facility] CHLORIDE 99(L) 100 - 110 mmol/L 01/04/2019 4:31 PM [facility] CO2, VENOUS 28 22 - 32 mmol/L 01/04/2019 4:31 PM [facility] ANION GAP 16.2 8.0 - 20.0 mmol/L 01/04/2019 4:31 PM [facility] GLUCOSE 99 70 - 99 mg/dL 01/04/2019 4:31 PM [facility] BUN 13 6 - 20 mg/dL 01/04/2019 4:31 PM [facility] CREATININE, BLOOD 1.00 0.60 - 1.10 mg/dL 01/04/2019 4:31 PM [facility] BUN/CREATININE RATIO 13 12 - 20 ratio 01/04/2019 4:31 PM [facility] TOTAL PROTEIN 8.2 6.0 - 8.3 g/dL 01/04/2019 4:31 PM [facility] ALBUMIN 4.8 3.5 - 5.2 g/dL 01/04/2019 4:31 PM [facility] Comment: The colormetric methods used for the determination of Albumin may lead to falsely elevated test results in patients suffering from renal failure or insufficiency due to interference with other proteins. A/G RATIO 1.4 1.0 - 2.0 01/04/2019 4:31 PM [facility] CALCIUM 9.9 8.9 - 10.3 mg/dL 01/04/2019 4:31 PM [facility] T BILI 0.4 <=1.2 mg/dL 01/04/2019 4:31 PM [facility] SGOT (AST) 29 <=32 U/L 01/04/2019 4:31 PM [facility] SGPT (ALT) 20 <=33 U/L 01/04/2019 4:31 PM [facility] ALKALINE PHOSPHATASE 71 35 - 105 U/L 01/04/2019 4:31 PM CDT [facility] GFR, EST. NONAFRICAN 59(L) >=60 01/04/2019 4:31 PM CDT [facility] GFR, EST. >60 >=60 019 4:31 PM CDT [facility] Comment: Creatinine Clearance is the preferred criteria for selecting drug dose adjustments in renally impaired patients. The GFR is provided as additional pertinent clinical information. GFR is reported in mL/min/1.73 sq m. Blood specimen (specimen) Venipuncture / Unknown 01/04/2019 11:17 AM CDT 01/04/2019 11:17 AM CDT us Fátima Jean PAC CHEMISTRY ORDERAB LES Final Result [facility] [address] [place] [address] from Last 3 Months or Most Recently Relevant to Health Maintenance
--- OUTSIDE RECORDS SUMMARY | 2025-03-10 06:49 | XMS_ITS | Encounter Summary ---
Author Organization [facility] Address [address] [place] [address] Care Team Providers Care Silver Spray Worker Name Role Phone Carlota Connolly Primary Care Provider [phone] Encounter Details Date Type Department Care Team (Late st Contact Info) Description 01/15/[address] [facility] Conversion [address] [place] [address] , Generic Conversion, Social History Tobacco Use [...] on filedocumented in this encounter Care Teams Silver Spray Worker Relationship Specialty Start Date End Date Carlota Connolly APNP [facility] [place] [address] PCP - General NURSE PRACTITIONER 10/25/21 documented as of this encounter
--- OUTSIDE RECORDS SUMMARY | 2025-03-10 06:49 | XMS_ITS | Clinical Summary ---
Author Organization [facility] [employer] Address [address] [place] [address] Care Team Providers Care Seam Sewer Name Role Phone Werner Bartholomew MD Primary Care Provider Source Comments [facility] [employer],non-owned Affiliates and Associated Physician Practices is amultiple site organization consisting of ambulatory clinics and hospital sitesin [place], [place], [place] and [place]. This disclosure is being madepursuant to the Care Everywhere program and may not contain all information available regarding this patient. 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 Gender Identity Not on file Sexual Orientation [...] SCREENING 1971 LIPID TESTING 1971 MAMMOGRAM 1971 HIV SCREENING 1986 HEPATITIS C SCREENING 09/14/1989 DTAP/TDAP/TD VACCINES (1 - Tdap) 1990 HEPATITIS B VACCINE (1 of 3 - 19+ 3-dose series) 1990 PAP SMEAR 1992 PNEUMOCOCCAL VACCINE 50+ (1 of 1 - PCV) 2021 ZOSTER VACCINE (1 of 2) 2021 COVID-19 VACCINE (1 - 2023-2 5 season) 2024 DEPRESSION SCREENING 08/10/2024 INFLUENZA VACCINE (#1) 2025 HIB VACCINE Aged Out No longer [...] patient's age to complete this topic Insurance MEDICAID - OUT OF STATE [facility] Care Teams Seam Sewer Relationship Specialty Start Date End Date Werner Bartholomew MD [address] [place] [address] PCP - General 01/07/12
--- OUTSIDE RECORDS SUMMARY | 2025-03-10 06:49 | XMS_ITS | Clinical Summary ---
Author Organization [facility] Address [address] [place] [id number] Care Team Providers Care Lcac Operator Name Role Phone Carlota Connolly JHOANA Primary Care Provider Social History Tobacco Use Types Packs/Day Years [...] Screening with HPV 2001 Mammogram Screening 2011 Pneumococcal Vaccine: 50+ Ye ars (1 of 1 - PCV) 2021 Zoster Vaccines (1 of 2) 2021 COVID-19 [...] complete this topic Insurance [employer] Care Teams Lcac Operator Relationship Specialty Start Date End Date Carlota Connolly APNP [address] [place] [id number] PCP - General NURSE PRACTITIONER 10/25/21
--- OUTSIDE RECORDS SUMMARY | 2025-03-10 06:49 | XMS_ITS | Referral Summary ---
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 Gender Identity Not on file Sexual Orientation [...] [facility] ([facility]) Comment:Testing performed by : [facility], [address] [place] [address], [place]., [address] Hep B core IgM Negative Negative [facility] ([place]) Comment:Testing performed by : [address] [address] Hep C Ab Negative Negative [facility] ([place]) Comment:Testing performed by : [facility], [address] [place] [address]., [id number] HepBsAg Negative Negative [facility] ([place]) Comment:Testing performed by : [address], [place]., [address] Blood specimen (specimen) 01/13/2018 8:55 AM CDT 01/13/2018 2:04 PM CDT Narrative [facility] ([facility] - 01/13/2018 3:21 PM CDT us Conrado Mccall MD LAB MICROBIOLOGY - GENE RAL ORDERABLES Final Result [facility] 1 [facility] [place] [address] from Last 3 Months or Most Recently Relevant to Health Maintenance [place] Care Teams Scow Captain Relationship Specialty Start Date End Date No, Physician PCP - General 01/13/18
[2025-03-10 08:26] LABS: Free T4 Free Thyroxine 0.67 ng/dL (0.78-2.19)
[2025-03-10 08:40] LABS: Thyroid Stimulating Hormone 7.350 uIU/mL (0.465-4.680)
== END 2025-03-10 06:46 | disposition home or self-care (01) ==
LOC: ANHLAB 06:47
PROVIDERS: PCP Nurse Practitioner Family; Visit Provider Internal Medicine
DX: E11.9 Type 2 diabetes mellitus without complications (principal); Z79.4 Long term (current) use of insulin; I10 Essential (primary) hypertension; E03.9 Hypothyroidism, unspecified
CPT/HCPCS: 36415; 84439; 84443